=== PATIENT | female | born 1945 | race Caucasian/White ===

== ENCOUNTER → 2017-07-29 10:16 | Outpatient (CLI) | payer MEDICARE, SELFPAY ==
--- NOTE | 2017-07-29 10:19 | DI.RAD.S_ITS ---
PROCEDURE: XR KNEE LT 3V INDICATIONS: 72 year-old female with left knee pain. TECHNIQUE: 3 views of the knee were acquired. COMPARISON: [facility], , KNEE 3V LEFT, 10/02/2014, 8:20. [facility], , KNEE 3V LEFT, 12/20/2007, 13:10. FINDINGS: Bones: No fractures or dislocations. Medial knee joint degenerative narrowing is unchanged, with peripheral osteophyte formation. Small patellar osteophytes are also unchanged. No suspicious bony lesions. Soft tissues: No joint effusion. No suspicious soft tissue calcifications. IMPRESSION: No significant interval change in moderate medial left knee joint degeneration. Dictated by: Bal Azar M.D. on 07/29/2017 at 10:37 Approved by: Bal Azar M.D. on 07/29/2017 at 10:38
--- NOTE | 2017-07-29 10:19 | DI.RAD.S_ITS ---
PROCEDURE: XR KNEE RT 3V INDICATIONS: 72 year-old female with right knee pain. TECHNIQUE: 3 views of the knee were acquired. COMPARISON: None. FINDINGS: Bones: No fractures or dislocations. There is medial right knee joint degenerative narrowing, along with peripheral osteophyte formation. No suspicious bony lesions. Soft tissues: No joint effusion. No suspicious soft tissue calcifications. IMPRESSION: Mild medial right knee joint degeneration. Dictated by: Bal Azar M.D. on 07/29/2017 at 10:36 Approved by: Bal Azar M.D. on 07/29/2017 at 10:37
== END ==
PROVIDERS: PCP Family Medicine; Visit Provider Family Medicine
DX: M17.0 Bilateral primary osteoarthritis of knee (principal); M25.561 Pain in right knee; M25.562 Pain in left knee
CPT/HCPCS: 73562

== ENCOUNTER → 2017-10-21 07:21 | Outpatient (CLI) | payer MEDICARE, SELFPAY ==
[2017-10-21 08:37] LABS: Cholesterol 214 mg/dL (140-199); Glucose 93 mg/dL (80-110); HDL Cholesterol 66 mg/dL (40-60); LDL Cholesterol Calculated 130 mg/dL (<100); Triglycerides 88 mg/dL (35-150)
== END ==
PROVIDERS: PCP Family Medicine; Visit Provider Family Medicine
DX: Z13.220 Encounter for screening for lipoid disorders (principal); Z13.1 Encounter for screening for diabetes mellitus
CPT/HCPCS: 36415; 80061; 82947

== ENCOUNTER → 2017-10-23 13:20 | Outpatient (CLI) | payer MEDICARE, SELFPAY ==
--- NOTE | 2017-10-23 13:21 | DI.MG.S_ITS ---
BILATERAL DIGITAL SCREENING MAMMOGRAM 3D/2D WITH CAD: 10/23/2017 CLINICAL: Routine screening. Comparison is made to exams dated: 10/21/2016 mammogram, 11/01/2014 mammogram, and 09/21/2013 mammogram - [facility]. There are scattered fibroglandular elements in both breasts. Current study was also evaluated with a Computer Aided Detection (CAD) system. No significant masses, calcifications, or other findings are seen in either breast. There has been no significant interval change. IMPRESSION: NEGATIVE There is no mammographic evidence of malignancy. A 1 year screening mammogram is recommended. This exam was interpreted at Station ID: [id number]. NOTE: For mammograms, a report in lay terms will be sent to the patient. Approximately 15% of breast malignancies will not be visualized mammographically. In the management of a palpable breast mass, a negative mammogram must not discourage biopsy of a clinically suspicious lesion. Electronically Signed By: Evin geller/clarisa:10/23/2017 15:57:26 letter sent: Normal Exam ACR BI-RADS Category 1: Negative 3341F
== END ==
PROVIDERS: Family Provider Family Medicine; PCP Family Medicine; Visit Provider Family Medicine
DX: Z12.31 Encounter for screening mammogram for malignant neoplasm of breast (principal)
CPT/HCPCS: 77063; 77067

== ENCOUNTER → 2018-03-01 10:42 | Outpatient (CLI) | payer MEDICARE, SELFPAY ==
[2018-03-03 19:02] LABS: Fecal Immunochemical Test NOT DETECTED
== END ==
PROVIDERS: PCP Physician Assistant; Visit Provider Physician Assistant
DX: Z12.11 Encounter for screening for malignant neoplasm of colon (principal)
CPT/HCPCS: 82274

== ENCOUNTER → 2018-07-30 08:25 | Outpatient (CLI) | payer MEDICARE, SELFPAY ==
--- NOTE | 2018-07-30 08:29 | DI.RAD.S_ITS ---
PROCEDURE: FL BARIUM SWALLOW INDICATIONS: Recurrent GERD COMPARISON: None. FINDINGS: Function: There is severely delayed esophageal clearance and decreased esophageal peristalsis. Spontaneous gastroesophageal reflux to the level of the lower third of the esophagus. Morphology: Air-contrast images demonstrate diffuse mucosal irregularity presumably reflux related. There is also feline appearance. Single contrast views show no esophageal strictures, extrinsic mass effects, or diverticula. Tiny sliding hiatal hernia. IMPRESSION: Esophageal dysmotility and delayed esophageal clearance. Spontaneous esophageal reflux. Diffuse esophageal mucosal irregularity, presumably related to reflux. Minimal sliding hiatal hernia. Dictated by: Korey Ann M.D. on 07/30/2018 at 9:52 Approved by: Korey Ann M.D. on 07/30/2018 at 10:09
== END ==
PROVIDERS: PCP Physician Assistant; Visit Provider Physician Assistant
DX: K21.9 Gastro-esophageal reflux disease without esophagitis (principal); K22.4 Dyskinesia of esophagus; F45.8 Other somatoform disorders
CPT/HCPCS: 74220

== ENCOUNTER → 2018-10-14 07:14 | Outpatient (CLI) | payer MEDICARE, SELFPAY ==
[2018-10-14 08:44] LABS: Alanine Aminotransferase 11 IU/L (9-52); Albumin 4.3 g/dL (3.5-5.0); Albumin Globulin Ratio 1.5 (1.0-2.8); Alkaline Phosphatase 55 U/L (38-126); Aspartate Aminotransferase 21 IU/L (14-36); BUN Creatinine Ratio 17.5 (6-22); Bilirubin Total 0.4 mg/dL (0.2-1.3); Blood Urea Nitrogen 14 mg/dL (7-17); Carbon Dioxide 31 mmol/L (22-32); Chloride 103 mmol/L (98-107); Cholesterol 205 mg/dL (140-199); Estimated Glomerular Filt Rate > 60.0 mL/min (>60); Globulin 2.9 g/dL (1.7-4.1); Glucose 96 mg/dL (80-110); HDL Cholesterol 67 mg/dL (40-60); HEMOLYSIS < 15 (0-50); LDL Cholesterol Calculated 121 mg/dL (<100); Potassium 4.8 mmol/L (3.4-5.1); Sodium 142 mmol/L (137-145); Total Protein 7.2 g/dL (6.3-8.2); Triglycerides 86 mg/dL (35-150)
[2018-10-14 08:53] LABS: Add Manual Diff / Slide Review NO; Basophils Absolute Auto 0 /uL (0-100); Basophils Percent Auto 0.9 % (0-2); Eosinophils Absolute Auto 200 /uL (0-450); Eosinophils Percent Auto 3.3 % (2-4); Hematocrit 41.7 % (36-46); Hemoglobin 14.1 g/dL (12.0-16.0); Lymphocytes Absolute Auto 1500 /uL (1100-4500); Lymphocytes Percent Auto 28.5 % (25-40); Mean Corpuscular HGB Conc 33.9 % (30-36); Mean Corpuscular Hemoglobin 31.2 PG (26-34); Mean Corpuscular Volume 92.1 fL (80-100); Monocytes Absolute Auto 400 /uL (0-900); Monocytes Percent Auto 7.9 % (3-14); Neutrophils Absolute Auto 3100 /uL (1500-7000); Neutrophils Percent Auto 59.4 % (50-75); Platelet Count 269 X10^3/uL (150-400); Red Blood Cell Count 4.53 X10^6/uL (4.0-5.2); Red Cell Distribution Width 13.9 % (11.6-14.8); White Blood Cell Count 5.2 X10^3/uL (4.5-11.0)
== END ==
PROVIDERS: PCP Physician Assistant; Visit Provider Physician Assistant
DX: E78.5 Hyperlipidemia, unspecified (principal); K21.0 Gastro-esophageal reflux disease with esophagitis
CPT/HCPCS: 36415; 80053; 80061; 85025

== ENCOUNTER → 2018-12-15 07:32 | Outpatient (CLI) | payer MEDICARE, SELFPAY ==
--- NOTE | 2018-12-15 | DI.MG.S_ITS ---
BILATERAL DIGITAL SCREENING MAMMOGRAM 3D/2D WITH CAD: 12/15/2018 CLINICAL: Routine screening. Comparison is made to exams dated: 10/23/2017 mammogram, 10/21/2016 mammogram, and 11/01/2014 mammogram - [facility]. The tissue of both breasts is heterogeneously dense. This may lower the sensitivity of mammography. Current study was also evaluated with a Computer Aided Detection (CAD) system. There are benign post operative findings in the right breast. No significant masses, calcifications, or other findings are seen in either breast. There has been no significant interval change. IMPRESSION: There is no mammographic evidence of malignancy. A 1 year screening mammogram is recommended. This exam was interpreted at Station ID: [id number]. NOTE: For mammograms, a report in lay terms will be sent to the patient. Approximately 15% of breast malignancies will not be visualized mammographically. In the management of a palpable breast mass, a negative mammogram must not discourage biopsy of a clinically suspicious lesion. Electronically Signed By: Trudy church/clarisa:12/15/2018 08:47:16 letter sent: Normal Exam ACR BI-RADS Category 2: Benign Finding(s) 3342F
== END ==
PROVIDERS: PCP Physician Assistant; Visit Provider Physician Assistant
DX: Z12.31 Encounter for screening mammogram for malignant neoplasm of breast (principal)
CPT/HCPCS: 77063; 77067

== ENCOUNTER → 2019-03-04 10:11 | Outpatient (CLI) | payer MEDICARE, SELFPAY ==
[2019-03-07 21:02] LABS: Fecal Immunochemical Test NOT DETECTED (NOT DETECTED)
== END ==
PROVIDERS: PCP Physician Assistant; Visit Provider Physician Assistant
DX: Z12.11 Encounter for screening for malignant neoplasm of colon (principal)
CPT/HCPCS: 82274

== ENCOUNTER → 2019-05-11 11:06 | Outpatient (CLI) | payer MEDICARE, SELFPAY ==
--- NOTE | 2019-05-11 | DI.RAD.S_ITS ---
PROCEDURE: XR KNEE LT 3V INDICATIONS: LEFT KNEE PAIN TECHNIQUE: 3 views of the knee were acquired. COMPARISON: [facility], , XR KNEE LT 3V, 07/29/2017, 10:00. FINDINGS: Bones: No fractures or dislocations. No suspicious bony lesions. Inpeypoe-pa-qoocim narrowing of the medial femoral tibial joint and tricompartmental periarticular osteophyte formation. Soft tissues: Small joint effusion. No suspicious soft tissue calcifications. IMPRESSION: Moderate to severe progressive narrowing of the medial femorotibial joint. Dictated by: Hipolito Koehler [facility] Interpreted: Vitor Holcomb MD on 05/11/2019 at 13:29 Approved by: Vitor Holcomb M.D. on 05/11/2019 at 13:46
== END ==
PROVIDERS: PCP Nurse Practitioner Family; Referring Provider Nurse Practitioner Family; Visit Provider Nurse Practitioner Family
DX: M25.562 Pain in left knee (principal); M25.462 Effusion, left knee
CPT/HCPCS: 73562

== ENCOUNTER → 2019-12-20 10:38 | Outpatient (CLI) | payer MEDICARE, SELFPAY ==
--- NOTE | 2019-12-20 | DI.MG.S_ITS ---
BILATERAL DIGITAL SCREENING MAMMOGRAM 3D/2D WITH CAD: 12/20/2019 CLINICAL: Routine screening. Comparison is made to exams dated: 12/15/2018 mammogram, 10/23/2017 mammogram, and 10/21/2016 mammogram - [facility]. The tissue of both breasts is heterogeneously dense. This may lower the sensitivity of mammography. Current study was also evaluated with a Computer Aided Detection (CAD) system. There are benign post operative findings in the right breast. No significant masses, calcifications, or other findings are seen in either breast. There has been no significant interval change. IMPRESSION: BENIGN There is no mammographic evidence of malignancy. A 1 year screening mammogram is recommended. This exam was interpreted at Station ID: [id number]. NOTE: For mammograms, a report in lay terms will be sent to the patient. Approximately 15% of breast malignancies will not be visualized mammographically. In the management of a palpable breast mass, a negative mammogram must not discourage biopsy of a clinically suspicious lesion. Electronically Signed By: Garcia sandoval/clarisa:12/20/2019 13:42:55 letter sent: Normal Exam ACR BI-RADS Category 2: Benign Finding(s) 3342F
== END ==
PROVIDERS: PCP Nurse Practitioner Family; Referring Provider Nurse Practitioner Family; Visit Provider Nurse Practitioner Family
DX: Z12.31 Encounter for screening mammogram for malignant neoplasm of breast (principal)
CPT/HCPCS: 77063; 77067

== ENCOUNTER → 2020-01-25 09:20 | Outpatient (CLI) | payer MEDICARE, SELFPAY ==
[2020-01-25 10:10] LABS: Hematocrit 39.2 % (36-46); Mean Corpuscular HGB Conc 33.2 % (30-36); Mean Corpuscular Hemoglobin 30.8 PG (26-34); Mean Corpuscular Volume 92.9 fL (80-100); Platelet Count 235 X10^3/uL (150-400); Red Blood Cell Count 4.22 X10^6/uL (4.0-5.2); Red Cell Distribution Width 13.5 % (11.6-14.8)
[2020-01-25 10:59] LABS: Alanine Aminotransferase 12 IU/L (<35); Albumin Globulin Ratio 1.4 (1.0-2.8); Alkaline Phosphatase 58 U/L (38-126); Aspartate Aminotransferase 20 IU/L (14-36); BUN Creatinine Ratio 22.9 (6-22); Bilirubin Total 0.5 mg/dL (0.2-1.3); Blood Urea Nitrogen 16 mg/dL (7-17); Calcium 9.7 mg/dL (8.4-10.2); Carbon Dioxide 33 mmol/L (22-32); Chloride 104 mmol/L (98-107); Cholesterol 196 mg/dL (140-199); Estimated Glomerular Filt Rate > 60.0 mL/min (>60); Globulin 2.8 g/dL (1.7-4.1); Glucose 94 mg/dL (80-110); HDL Cholesterol 63 mg/dL (40-60); HEMOLYSIS < 15 (0-50); LDL Cholesterol Calculated 117 mg/dL (<100); Potassium 5.1 mmol/L (3.4-5.1); Sodium 138 mmol/L (137-145); Total Protein 6.8 g/dL (6.3-8.2); Triglycerides 80 mg/dL (35-150)
== END ==
PROVIDERS: PCP Nurse Practitioner Family; Referring Provider Nurse Practitioner Family; Visit Provider Nurse Practitioner Family
DX: R14.0 Abdominal distension (gaseous) (principal); E78.5 Hyperlipidemia, unspecified
CPT/HCPCS: 36415; 80053; 80061; 85027

== ENCOUNTER → 2020-06-01 06:57 | Outpatient (CLI) | payer MEDICARE, SELFPAY ==
[2020-06-01 08:08] LABS: Hematocrit 40.9 % (36-46); Hemoglobin 13.4 g/dL (12.0-16.0); Mean Corpuscular HGB Conc 32.9 % (30-36); Mean Corpuscular Hemoglobin 30.6 PG (26-34); Mean Corpuscular Volume 93.1 fL (80-100); Platelet Count 274 X10^3/uL (150-400); Red Blood Cell Count 4.39 X10^6/uL (4.0-5.2); Red Cell Distribution Width 13.8 % (11.6-14.8); White Blood Cell Count 5.1 X10^3/uL (4.5-11.0)
[2020-06-01 08:24] LABS: Alanine Aminotransferase 13 IU/L (<35); Albumin 4.4 g/dL (3.5-5.0); Albumin Globulin Ratio 1.7 (1.0-2.8); Alkaline Phosphatase 58 U/L (38-126); Aspartate Aminotransferase 21 IU/L (14-36); BUN Creatinine Ratio 19.2 (6-22); Bilirubin Total 0.4 mg/dL (0.2-1.3); Blood Urea Nitrogen 15 mg/dL (7-17); Calcium 10.5 mg/dL (8.4-10.2); Carbon Dioxide 29 mmol/L (22-32); Chloride 103 mmol/L (98-107); Estimated Glomerular Filt Rate > 60.0 mL/min (>60); Globulin 2.6 g/dL (1.7-4.1); Glucose 94 mg/dL (80-110); HEMOLYSIS < 15 (0-50); Potassium 4.5 mmol/L (3.4-5.1); Sodium 139 mmol/L (137-145)
[2020-06-01 08:49] LABS: TSH w/ Reflex to FT4 2.11 uIU/mL (0.47-4.68)
[2020-06-01 09:09] LABS: Vitamin B12 Reflex MMA if <400 776 pg/mL (239-931)
== END ==
PROVIDERS: PCP Nurse Practitioner Family; Referring Provider Nurse Practitioner Family; Visit Provider Nurse Practitioner Family
DX: Z00.00 Encounter for general adult medical examination without abnormal findings (principal); R53.83 Other fatigue
CPT/HCPCS: 36415; 80053; 82607; 84443; 85027

== ENCOUNTER → 2020-06-21 13:44 | Outpatient (CLI) | payer MEDICARE, SELFPAY ==
[2020-06-22 12:36] LABS: Calcium 9.4 mg/dL (8.7-10.3); Parathyroid Hormone, Intact 68 pg/mL (15-65)
== END ==
PROVIDERS: PCP Nurse Practitioner Family; Referring Provider Nurse Practitioner Family; Visit Provider Nurse Practitioner Family
DX: E83.52 Hypercalcemia (principal)
CPT/HCPCS: 36415; 82310; 83970

== ENCOUNTER → 2020-11-07 14:00 | Outpatient (CLI) | payer MEDICARE, SELFPAY ==
[2020-11-07 15:41] LABS: Vitamin D 25 Hydroxy (D3) 50.3 ng/mL (30.0-100.0)
[2020-11-08 16:17] LABS: Calcium 9.8 mg/dL (8.7-10.3); Parathyroid Hormone, Intact 55 pg/mL (15-65)
== END ==
PROVIDERS: PCP Nurse Practitioner Family; Referring Provider Nurse Practitioner Family; Visit Provider Nurse Practitioner Family
DX: E55.9 Vitamin D deficiency, unspecified (principal); E34.9 Endocrine disorder, unspecified
CPT/HCPCS: 36415; 82306; 82310; 83970

== ENCOUNTER → 2020-12-10 08:52 | Outpatient (CLI) | payer MEDICARE, SELFPAY ==
--- NOTE | 2020-12-10 | DI.MG.S_ITS ---
BILATERAL DIGITAL SCREENING MAMMOGRAM 3D/2D WITH CAD: 12/10/2020 CLINICAL: Routine screening. Comparison is made to exams dated: 12/20/2019 mammogram, 12/15/2018 mammogram, 10/21/2016 mammogram, 10/23/2017 mammogram, and 11/01/2014 mammogram - [facility]. The tissue of both breasts is heterogeneously dense. This may lower the sensitivity of mammography. Current study was also evaluated with a Computer Aided Detection (CAD) system. No significant masses, calcifications, or other findings are seen in either breast. There has been no significant interval change. IMPRESSION: NEGATIVE There is no mammographic evidence of malignancy. A 1 year screening mammogram is recommended. This exam was interpreted at Station ID: [id number]. NOTE: For mammograms, a report in lay terms will be sent to the patient. Approximately 15% of breast malignancies will not be visualized mammographically. In the management of a palpable breast mass, a negative mammogram must not discourage biopsy of a clinically suspicious lesion. Electronically Signed By: Neeraj salvador/clarisa:12/10/2020 09:18:14 letter sent: Normal Exam ACR BI-RADS Category 1: Negative 3341F
== END ==
PROVIDERS: PCP Nurse Practitioner Family; Referring Provider Nurse Practitioner Family; Visit Provider Nurse Practitioner Family
DX: Z12.31 Encounter for screening mammogram for malignant neoplasm of breast (principal)
CPT/HCPCS: 77063; 77067

== ENCOUNTER → 2020-12-21 10:51 | Outpatient (CLI) | payer MEDICARE, SELFPAY ==
--- NOTE | 2020-12-21 10:53 | DI.US.S_ITS ---
PROCEDURE: US EXTREMITY NONVASC LOWER LT INDICATIONS: PAIN IN SOFT TISSUE POSTERIOR KNEE TECHNIQUE: Real-time scanning was performed of the left popliteal fossa. , with image documentation. COMPARISON: None. FINDINGS: Left popliteal fossa Blanca's cyst measuring 5.6 x 4.3 x 2.3 cm. Normal appearance of the adjacent popliteal vein. IMPRESSION: A Blanca's cyst is present in the posterior knee. Dictated by: Hipolito Koehler [facility] Interpreted: Berny Rodgers MD on 12/21/2020 at 12:46 Transcribed by: TERRENCE on 12/21/2020 at 12:48 Approved by: Berny Rodgers M.D. on 12/21/2020 at 13:55
== END ==
PROVIDERS: PCP Nurse Practitioner Family; Referring Provider Nurse Practitioner Family; Visit Provider Nurse Practitioner Family
DX: M25.562 Pain in left knee (principal); M71.22 Synovial cyst of popliteal space [Baker], left knee
CPT/HCPCS: 76882

== ENCOUNTER → 2021-07-03 10:35 | Outpatient (CLI) | payer MEDICARE, SELFPAY ==
--- NOTE | 2021-07-03 10:40 | DI.RAD.S_ITS ---
PROCEDURE: XR CHEST 2V INDICATIONS: cough TECHNIQUE: 2 views of the chest were acquired. COMPARISON: [facility], , CHEST 2 VIEW, 02/08/2015, 14:21. FINDINGS: Surgical changes and devices: None. Lungs and pleura: Calcified granuloma, left upper lobe, calcified AP window lymph node. These findings are consistent with chronic granulomatous disease. There is a question of a potential pulmonary nodule projecting either to the right middle lobe or lingula of left lung seen only on the lateral view. Lungs are clear. No pleural effusions or pneumothorax. Mediastinum: Mediastinal contours are normal. Heart size is normal. Bones and chest wall: No suspicious bony abnormalities. Soft tissues appear unremarkable. IMPRESSION: 1. Question pulmonary nodule seen only on the lateral view. 2. Chronic granulomatous disease. 3. No evidence acute pulmonary process. Comment: Recommend CT chest to rule out a pulmonary nodule which is only suggested on the lateral view. Comment: An Urgent Findings note was created in PACS to ensure notification of the referring clinician. Dictated by: Adair Villalobos M.D. on 07/03/2021 at 12:21 Approved by: Adair Villalobos M.D. on 07/03/2021 at 12:26
== END ==
PROVIDERS: PCP Family Medicine; Referring Provider Surgery; Visit Provider Surgery
DX: R05.9 Cough, unspecified (principal); J98.4 Other disorders of lung; K21.9 Gastro-esophageal reflux disease without esophagitis
CPT/HCPCS: 71046; 99213

== ENCOUNTER → 2021-07-04 06:52 | Outpatient (CLI) | payer MEDICARE, SELFPAY ==
[2021-07-04 08:52] LABS: Add Manual Diff / Slide Review NO; Basophils Absolute Auto 100 /uL (0-100); Basophils Percent Auto 1.4 % (0-2); Eosinophils Absolute Auto 200 /uL (0-450); Eosinophils Percent Auto 4.9 % (2-4); Lymphocytes Absolute Auto 1100 /uL (1100-4500); Mean Corpuscular HGB Conc 33.4 % (30-36); Mean Corpuscular Hemoglobin 30.5 PG (26-34); Mean Corpuscular Volume 91.3 fL (80-100); Monocytes Absolute Auto 400 /uL (0-900); Neutrophils Absolute Auto 2800 /uL (1500-7000); Neutrophils Percent Auto 60.7 % (50-75); Platelet Count 251 X10^3/uL (150-400); Red Blood Cell Count 4.28 X10^6/uL (4.0-5.2); Red Cell Distribution Width 13.9 % (11.6-14.8); White Blood Cell Count 4.6 X10^3/uL (4.5-11.0)
[2021-07-04 09:17] LABS: Alanine Aminotransferase 19 IU/L (<35); Albumin 4.4 g/dL (3.5-5.0); Albumin Globulin Ratio 1.7 (1.0-2.8); Alkaline Phosphatase 64 U/L (38-126); Aspartate Aminotransferase 26 IU/L (14-36); BUN Creatinine Ratio 22.5 (6-22); Bilirubin Total 0.4 mg/dL (0.2-1.3); Blood Urea Nitrogen 18 mg/dL (7-17); Calcium 9.6 mg/dL (8.4-10.2); Carbon Dioxide 31 mmol/L (22-32); Chloride 103 mmol/L (98-107); Cholesterol 223 mg/dL (140-199); Estimated Glomerular Filt Rate > 60 mL/min (>60); Globulin 2.6 g/dL (1.7-4.1); Glucose 87 mg/dL (80-110); HDL Cholesterol 73 mg/dL (40-60); HEMOLYSIS < 15 (0-50); LDL Cholesterol Calculated 134 mg/dL (<100); Potassium 4.6 mmol/L (3.4-5.1); Sodium 139 mmol/L (137-145); Triglycerides 79 mg/dL (35-150)
[2021-07-04 09:33] LABS: Vitamin D 25 Hydroxy (D3) 69.5 ng/mL (30.0-100.0)
[2021-07-04 09:48] LABS: TSH w/ Reflex to FT4 2.19 uIU/mL (0.47-4.68)
== END ==
PROVIDERS: PCP Family Medicine; Referring Provider Family Medicine; Visit Provider Family Medicine
DX: E55.9 Vitamin D deficiency, unspecified (principal); K21.00 Gastro-esophageal reflux disease with esophagitis, without bleeding; R42 Dizziness and giddiness; R53.83 Other fatigue
CPT/HCPCS: 36415; 80053; 80061; 82306; 84443; 85025

== ENCOUNTER → 2021-07-10 12:49 | Outpatient (CLI) | payer MEDICARE, SELFPAY ==
--- NOTE | 2021-07-10 12:51 | DI.CT.S_ITS ---
PROCEDURE: CT CHEST W CON INDICATIONS: Question of nodule on CXR TECHNIQUE: After the administration of intravenous contrast, 5 mm thick sections acquired from the pulmonary apices to the posterior costophrenic angles. 1 mm axial lung, 5 mm thick coronal and sagittal reformats and 7 mm axial MIP were acquired. For radiation dose reduction, the following was used: automated exposure control, adjustment of mA and/or kV according to patient size. COMPARISON: [facility], CR, XR CHEST 2V, 07/03/2021, 10:58. FINDINGS: Image quality: Excellent. Lungs and pleura: 1 cm calcification in the left upper lobe laterally. 5 mm pleural nodule in the right middle lobe series 4, image 92. No acute air space opacities. No pleural effusions or pneumothorax. Central and peripheral airways are patent and normal in caliber. Mediastinum: Heart size is normal. No pericardial effusion. No mediastinal adenopathy by size criteria. Thoracic aorta and central pulmonary arteries are normal in size. Esophagus is normal in caliber. The thyroid gland demonstrates multiple large heterogenous nodules consistent with thyroid goiter. Bones and chest wall: No suspicious bony lesions. No vertebral body compression fractures. No axillary or supraclavicular adenopathy by size criteria. Abdomen: Limited visualization of the upper abdomen shows no acute abnormality. The liver has several hypodensities consistent with hepatic cysts. IMPRESSION: 1. Benign calcified nodule in the left upper lobe. 2. Incidental pleural nodule in the right middle lobe measuring 5 mm approved. For >4-6 mm nodules: In low risk patients, follow-up CT at 12 months; if unchanged, no further follow-up needed. In high risk patients, initial follow-up CT at 6-12 months, then 18-24 months if no change. 3. Thyroid goiter. Recommend thyroid ultrasound. Dictated by: Humble Velez M.D. on 07/10/2021 at 13:40 Approved by: Humble Velez M.D. on 07/10/2021 at 13:46
== END ==
PROVIDERS: PCP Family Medicine; Referring Provider Surgery; Visit Provider Surgery
DX: E04.9 Nontoxic goiter, unspecified (principal); R05.9 Cough, unspecified; R91.8 Other nonspecific abnormal finding of lung field
CPT/HCPCS: 71260; Q9967

== ENCOUNTER → 2021-08-16 11:54 | Outpatient (CLI) | payer MEDICARE, SELFPAY ==
--- NOTE | 2021-08-16 11:56 | DI.US.S_ITS ---
PROCEDURE: US THYROID INDICATIONS: GOITER ON CT TECHNIQUE: Real-time scanning was performed of the thyroid gland, with image documentation. COMPARISON: [facility], CT, CT CHEST W CON, 07/10/2021, 13:04. FINDINGS: Right: Thyroid lobe measures 6.3 x 4.1 x 3 point cm, and is homogeneous in echotexture. Left: Thyroid lobe measures 6.2 x 2.9 x 4.2 cm, and is homogenous in echotexture. Isthmus: 15.1 mm thick. Numerous bilateral thyroid nodules. Largest thyroid nodules characterized lobe Nodule number: 1 Location: Left inferior Size: 2.2 x 1.3 x 2.1 cm. Composition: Solid Echogenicity: Isoechoic Shape: Wider than tall Margins: Smooth Echogenic foci: None Total points: 3 ACR TI-RADS category: Mildly suspicious Nodule number: 2 Location: Left inferior Size: 3.4 x 2.2 x 2.2 cm. Composition: Solid Echogenicity: Isoechoic Shape: wider than tall. Margins: Smooth Echogenic foci: None Total points: 3 ACR TI-RADS category: Mildly suspicious Nodule number: 3 Location: Right mid Size: 2.3 x 1.7 x 1.5 cm. Composition: Solid Echogenicity: Isoechoic Shape: Taller than wide Margins: Smooth Echogenic foci: None Total points: 6 ACR TI-RADS category: Moderately suspicious Nodule number: 4 Location: Right inferior Size: 1.6 x 1.8 x 1.8 cm. Composition: Solid Echogenicity: Hypoechoic Shape: wider than tall. Margins: Smooth Echogenic foci: Peripheral calcification Total points: 6 ACR TI-RADS category: Moderately suspicious IMPRESSION: Multiple thyroid nodules. Largest thyroid nodules or characterized. Based on size, imaging characteristics and criteria outlined below ultrasound-guided fine-needle aspiration of nodules 2, 3 and 4. Follow-up surveillance of nodule 1 at 1, 3 and 5 year intervals. ACR TI-RADS definitions and recommendations: TI-RADS 1 (benign): 0 points. FNA not needed. TI-RADS 2 (not suspicious): 2 points. FNA not needed. TI-RADS 3 (mildly suspicious): 3 points. * FNA if 2.5 cm or larger, follow up if 1.5 cm or larger (at 1, 3, and 5 years). TI-RADS 4 (moderately suspicious): 4-6 points. * FNA if 1.5 cm or larger, follow up if 1 cm or larger (at 1, 2, 3, and 5 years). TI-RADS 5 (highly suspicious): 7 points or more. * FNA if 1 cm or larger, follow up if 0.5 cm or larger (every year for 5 years). Dictated by: Antoinette Whittaker MD, PhD on 08/16/2021 at 14:10 Approved by: Antoinette Whittaker MD, PhD on 08/16/2021 at 14:20
== END ==
PROVIDERS: PCP Family Medicine; Referring Provider Surgery; Visit Provider Surgery
DX: E04.2 Nontoxic multinodular goiter
CPT/HCPCS: 76536

== ENCOUNTER → 2021-08-21 08:57 | Outpatient (CLI) | payer MEDICARE, SELFPAY ==
[2021-08-21 10:43] LABS: COVID19 -Nasal RAPID Negative (Negative)
== END ==
PROVIDERS: PCP Family Medicine; Visit Provider Surgery
DX: Z20.822 Contact with and (suspected) exposure to COVID-19 (principal); Z01.812 Encounter for preprocedural laboratory examination
CPT/HCPCS: 87635; C9803

== ENCOUNTER 2021-08-22 09:34 | Day surgery (SDC) | payer MEDICARE, SELFPAY ==
--- NOTE | 2021-08-22 | PATH_ITS ---
[facility] Accession Number: [id number] . 01 Material submitted: . PART A: stomach - ANTRUM BIOPSIES PART B: esophagus, E-G Junction - GE JUNCTION BIOPSIES PART C: esophagus - DISTAL ESOPHAGUS BIOPSIES PART D: esophagus - MID ESOPHAGEAL BIOPSIES PART E: esophagus - UPPER ESOPHAGEAL BIOPSIES . 01 Clinical history: . [facility] [place] SCREENING FOR MALIGNANT NEOPLASM PERSONAL HISTORY OF COLONIC POLYPS GASTRO-ESOPHAGEAL REFLUX DISEASE WITH ESOPHAGITIS . 01 Diagnosis: A. Stomach, Antrum, Biopsies: Antral mucosa with mild chronic gastritis. No evidence of Helicobacter on H/E stain. Negative for intestinal metaplasia. Negative for dysplasia and malignancy. . B. Gastroesophageal Junction, Biopsies: Squamocolumnar junctional mucosa with no diagnostic abnormality. Negative for intestinal metaplasia. Negative for dysplasia and malignancy. . C-E: Distal Esophagus, Mid Esophagus, Upper Esophagus, Biopsies: Squamous epithelium with no diagnostic abnormality. Intraepithelial eosinophils are not increased. Negative for dysplasia and malignancy. [facility] 08/28/2021 1341 Local . 01 Electronically signed: . Jill Oakley MD, Pathologist NPI- [id number] . 01 Gross description: . Part A: ANTRUM BIOPSIES: Received in formalin is 1 fragment(s) of rosenthal, soft tissue measuring 0.3 x 0.2 x 0.1 cm to 0.1 x 0.1 x 0.1 cm submitted entirely in 1 cassette(s) Part B: GE JUNCTION BIOPSIES: Received in formalin are 4 fragment(s) of rosenthal, soft tissue measuring 0.3 x 0.2 x 0.1 cm to 0.2 x 0.1 x 0.1 cm submitted entirely in 1 cassette(s) Part C: DISTAL ESOPHAGUS BIOPSIES: Received in formalin are 2 fragment(s) of rosenthal, soft tissue measuring 0.3 x 0.2 x 0.1 cm to 0.2 x 0.1 x 0.1 cm submitted entirely in 1 cassette(s) Part D: MID ESOPHAGEAL BIOPSIES: Received in formalin is 1 fragment(s) of rosenthal, soft tissue measuring 0.2 x 0.1 x 0.1 cm submitted entirely in 1 cassette(s) Part E: UPPER ESOPHAGEAL BIOPSIES: Received in formalin are minute fragment(s) of rosenthal, soft tissue measuring 0.1 x 0.1 x 0.1 cm in aggregate submitted entirely in 1 cassette(s) /CPE 08/23/2021 0615 Local . 01 Pathologist provided ICD-10: K21.00 . 01 CPT . 996546, 600082, 276896, 818379, 312825 Specimen Comment: A courtesy copy of this report has been sent to [phone] Performed at: 01 [facility] [address] [place] [address], [place], [place] [id number] MD Marcin Ridley MD Phone: [phone]
[2021-08-22 09:52] VITALS: BP 129/65; PULSE 67; RESP 15; TEMP 36.3; O2SAT 97; BMI 25.8
--- NOTE | 2021-08-22 11:37 | P.HP_ITS ---
History of Present Illness History of Present Illness Date Patient Seen: 08/22/21 Time Patient Seen: 11:37 Chief complaint: [facility] Narrative: An is here for her EGD and colonoscopy. She did have her CT scan which showed a few nodules in the lung that require follow-up as well as a thyroid goiter which prompted an ultrasound which found multiple nodules some of which should be biopsied. Patient History Medical History Abdominal bloating Ankle pain Back pain Cataract (2014) Chicken pox (~1950) Elevated parathyroid hormone Fatigue (02/2019) Foot pain Hoarseness or changing voice Intertrigo labialis Left knee pain Mild to moderate hearing loss Mumps (~1950) Skin cancer (2012) Vertigo (~1989) Vitamin D deficiency Surgical History Anesthesia History of bladder suspension procedure (2012) History of cataract removal with insertion of prosthetic lens (2014) Status post surgical removal of malignant neoplasm of skin (2014) Family & Social History Family History Sister Age: 81 Overweight Heart disease Brother Heart disease Father Heart disease Mother No problems noted. Sister Overweight Heart disease Social History: household members spouse other walking,weight lifting,treadmill,camping,boating Tobacco & Substance use: Smoking Status Never smoker alcohol intake current Substance Use Type does not use Meds Home Medications and Allergies Home Medications Medication Instructions Recorded Confirmed Type cholecalciferol (vitamin D3) 50 2,000 iu PO Q DAY ##0 10/29/11 07/03/21 History mcg (2,000 unit) capsule (Vitamin D3) multivitamin See Rx Instructions PO DAILY 02/10/18 07/03/21 History vit 2 tab PO BID 02/10/18 07/03/21 History [id number] 500 mg-50 mg-25 mg-40 mg tablet (Bioflex) ketoconazole 2 % topical cream 1 applic topical BID #60 grams 05/31/20 07/03/21 Rx omega-3 fatty acids 1,000 mg 1,000 mg PO DAILY 05/31/20 07/03/21 History capsule (Fish Oil Concentrate) psyllium husk 0.4 gram capsule 0.4 g PO DAILY 05/31/20 07/03/21 History (Daily Fiber) meloxicam 15 mg tablet 15 mg PO DAILY #90 tabs 05/15/21 07/03/21 Rx meclizine 25 mg tablet 25 mg PO BID-TID PRN vertigo #30 05/24/21 07/03/21 Rx tabs sodium sul 1.479 gram-potas ch See Rx Instructions PO PER PKG DIR 07/04/21 Rx 0.188 gram-magnes sul 0.225 gram #24 tabs tablet (Sutab) omeprazole 20 mg capsule,delayed 20 mg PO DAILY #90 caps 08/15/21 Rx release oxybutynin chloride 5 mg tablet 5 mg PO BID #30 tabs 08/21/21 Rx Allergies Allergy/AdvReac Type Severity Reaction Status Date / Time No Known Drug Allergies Allergy Verified 08/22/21 09:46 Exam Vital Signs (past 8 hours): - 08/22/21 09:52 Temperature 97.4 F L Pulse Rate 67 Respiratory Rate 15 Blood Pressure 129/65 Pulse Oximetry 97 Oxygen Delivery Method Room Air Oxygen Delivery Method Room Air Const General: anxious Resp Effort & Inspection: normal respiratory effort Assessment & Plan Assessment and plan (1) Screening for colon cancer: Status: Acute (2) Abdominal bloating: Status: Acute Plan We will proceed with upper and lower endoscopy today. We reviewed the risks and benefits and she chooses to proceed. Once she has recovered from the procedure today we will want to refer her to an casework manager for her multiple thyroid nodules. We will also arrange for a follow-up CT scan of the chest a year from now. Time Spent With Patient Critical Care time: I spent a total of [] minutes of critical care time on this patient's care today; this time is exclusive of procedural time.
[2021-08-22] MEDS: LIDOCAINE 4% SOLN 50 ML 20 ML TOP (11:45)
--- NOTE | 2021-08-22 12:13 | PC.NURSE ---
Pt sedated per surgeon. Jaw thrust and O2 by nasal cannula increased. Pt responded well to both, O2 sats maintained with these interventions. Surgeon aware. See sedation pathway on worklist and total amount in APR.
[2021-08-22] MEDS: fentaNYL 250 MCG/5 ML INJ 150 MCG IV (12:18)
[2021-08-22] MEDS: MIDAZOLAM 5 MG/5 ML VIAL 8 MG IV (12:19)
--- NOTE | 2021-08-22 12:22 | PM.OP.EC ---
Operative Date/Time/Diagnoses Date of procedure: 08/22/21 Time of procedure: 12:22 Pre-op diagnosis: Reflux and history of polyps Procedure & Clinicians Study performed: EGD and colonoscopy Same procedure as scheduled: Yes Surgeon: Archie Whiteside Procedure Notes Procedure in detail: Surgeon: Archie Whiteside MD Procedure in detail: A timeout was performed. A bite blocked was placed and monitors were attached to the patient. The patient was positioned in a left lateral decubitus position. Sedation was administered with Versed and fentanyl. Once the patient was sedated the endoscope was inserted through the bite block and passed through the esophagus and stomach and into the duodenum. The duodenum appeared normal. The scope was withdrawn into the stomach and the antrum was noted to be mildly inflamed and random biopsies were taken from the antrum. The rest of the stomach was grossly normal. The endoscope was retroflexed and no hiatal hernia was seen. The endoscope was straightned and withdrawn into the esophagus. The entire esophagus was inflamed and the mucosa was irregular. Biopsies were taken from the GE junction circumferentially, the distal esophagus, the midesophagus and the upper esophagus. No masses were identified. Findings: Mild antritis and esophagitis Next we repositioned the patient for a colonoscopy. A digital rectal exam was performed and was normal. The colonoscope was inserted and advanced to the cecum. The appendiceal orifice was identified and photographed. The scope was slowly withdrawn over greater than 6 minutes. No polyps were noted. The scope was retroflexed in the rectum and no abnormalities were noted. Findings: Normal colon EBL: 5 mL Scope withdrawal time: 7 Sedation minutes: 34 Post-procedure Disposition: PACU
[2021-08-22 12:25] VITALS: BP 120/73; PULSE 80; RESP 14; TEMP 36.5; O2SAT 91
--- NOTE | 2021-08-22 12:25 | PC.NURSE ---
Discontinued jaw thrust, pt maintained airway on her own. O2 sats WNL on nasal cannula
[2021-08-22 12:30] VITALS: BP 125/64; PULSE 73; RESP 14; TEMP 36.4; O2SAT 93
[2021-08-22 12:35] VITALS: BP 129/68; PULSE 78; RESP 16; TEMP 36.3; O2SAT 93
[2021-08-22 12:40] VITALS: BP 115/63; PULSE 75; RESP 14; TEMP 36.3; O2SAT 93
[2021-08-22 12:56] VITALS: BP 139/76; PULSE 76; RESP 18; TEMP 36.3; O2SAT 93
== END 2021-08-22 13:04 | disposition home or self-care (01) ==
PROVIDERS: PCP Family Medicine; Referring Provider Surgery; Visit Provider Surgery
PROC: 0DJD8ZZ Inspection of Lower Intestinal Tract, Via Natural or Artificial Opening Endoscopic (ICD-10-PCS; CPT 45378; principal; 2021-08-22 10:45)
PROC: 0DJ08ZZ Inspection of Upper Intestinal Tract, Via Natural or Artificial Opening Endoscopic (ICD-10-PCS; CPT 43235; 2021-08-22 10:45)
DX: Z12.11 Encounter for screening for malignant neoplasm of colon (principal); Z86.010 Personal history of colon polyps; K21.00 Gastro-esophageal reflux disease with esophagitis, without bleeding; K29.50 Unspecified chronic gastritis without bleeding
CPT/HCPCS: 43239; G0105; 99152; 99153; J2250; J3010

== ENCOUNTER → 2021-10-30 10:24 | Outpatient (CLI) | payer MEDICARE, SELFPAY ==
--- NOTE | 2021-10-30 10:38 | DI.US.S_ITS ---
PROCEDURE: US PERIPH VENOUS LOW EXTREM LT INDICATIONS: SWELLING TECHNIQUE: Real-time imaging, as well as color and pulse Doppler interrogation, were performed of the lower extremity deep veins from the inguinal ligament to the popliteal fossa. COMPARISON: None. FINDINGS: The common femoral, femoral and popliteal veins are normally compressible, and free of intraluminal thrombus. Color and pulse Doppler demonstrate normal phasic intraluminal flow. There is normal augmentation response to distal compression maneuver. Complex fluid collection in the mid calf measuring 10 x 5.3 x 2.4 cm. IMPRESSION: No deep venous thrombosis. Complex collection mid calf possibly representing hematoma. Dictated by: Milady Acosta M.D. on 10/30/2021 at 12:15 Approved by: Milady Acosta M.D. on 10/30/2021 at 12:17
== END ==
PROVIDERS: PCP Physician Assistant; Referring Provider Registered Nurse; Visit Provider Registered Nurse
DX: M79.89 Other specified soft tissue disorders (principal)
CPT/HCPCS: 93971

== ENCOUNTER → 2021-10-30 10:29 | Outpatient (CLI) | payer MEDICARE, SELFPAY | PROVIDERS: PCP Family Medicine; Referring Provider Registered Nurse; Visit Provider Registered Nurse | DX: M79.662 Pain in left lower leg (principal); M79.89 Other specified soft tissue disorders ==

== ENCOUNTER → 2021-11-25 10:14 | Outpatient (CLI) | payer MEDICARE, SELFPAY ==
[2021-11-25 19:53] LABS: Free T4, Direct Thyroxine 1.24 ng/dL (0.78-2.19)
[2021-11-25 20:07] LABS: Thyroid Stimulating Hormone 1.39 uIU/mL (0.47-4.68)
== END ==
PROVIDERS: PCP Physician Assistant; Referring Provider Internal Medicine Endocrinology, Diabetes & Metabolism; Visit Provider Internal Medicine Endocrinology, Diabetes & Metabolism
DX: E04.2 Nontoxic multinodular goiter (principal)
CPT/HCPCS: 36415; 84439; 84443

== ENCOUNTER → 2021-12-18 09:41 | Outpatient (CLI) | payer MEDICARE, SELFPAY ==
--- NOTE | 2021-12-18 09:44 | DI.MG.S_ITS ---
BILATERAL DIGITAL SCREENING MAMMOGRAM 3D/2D WITH CAD: 12/18/2021 CLINICAL: Routine screening. Comparison is made to exams dated: 12/10/2020 mammogram, 12/20/2019 mammogram, and 12/15/2018 mammogram - [facility]. Both breasts are heterogeneously dense, which may obscure small masses (category c / 51-75% glandular tissue). Current study was also evaluated with a Computer Aided Detection (CAD) system. No significant masses, calcifications, or other findings are seen in either breast. There has been no significant interval change. IMPRESSION: NEGATIVE There is no mammographic evidence of malignancy. A 1 year screening mammogram is recommended. Based on the Tyrer Cuzick model (a risk assessment model) the patient's lifetime risk is 5.4% and her 10 year risk is 0.0%. According to the ACR, ACS, and NCCN guidelines, an annual breast MRI exam along with mammogram is recommended if the patient's lifetime risk is 20% or greater. This exam was interpreted at Station ID: [id number]. NOTE: For mammograms, a report in lay terms will be sent to the patient. Approximately 15% of breast malignancies will not be visualized mammographically. In the management of a palpable breast mass, a negative mammogram must not discourage biopsy of a clinically suspicious lesion. Electronically Signed By: Trudy church/clarisa:12/18/2021 13:08:08 letter sent: Normal Exam ACR BI-RADS Category 1: Negative [id number]
== END ==
PROVIDERS: PCP Physician Assistant; Referring Provider Physician Assistant; Visit Provider Physician Assistant
DX: Z12.31 Encounter for screening mammogram for malignant neoplasm of breast (principal)
CPT/HCPCS: 77063; 77067

== ENCOUNTER → 2022-07-24 11:12 | Outpatient (CLI) | payer MEDICARE, SELFPAY ==
--- NOTE | 2022-07-24 11:13 | DI.CT.S_ITS ---
PROCEDURE: CT CHEST WO CON INDICATIONS: lung nodule TECHNIQUE: Noncontrast 5 mm thick sections acquired from the pulmonary apices to the posterior costophrenic angles. 1 mm lung window, 5 mm thick coronal and sagittal and 7 mm axial MIP reformats were then acquired. For radiation dose reduction, the following was used: automated exposure control, adjustment of mA and/or kV according to patient size. COMPARISON: [facility], US, US FINE NEEDLE ASPIRATION THYROID, 12/25/2021, 13:48. US, US THYROID, 08/16/2021, 12:08. [facility], CT, CT CHEST W CON, 07/10/2021, 13:04. FINDINGS: Image quality: Excellent. Lungs and pleura: There is a 5 mm nodule in the right middle lobe (series 3, image 214), unchanged. A 1 cm calcified granuloma is seen in the left upper lobe. No acute air space opacities. No pleural effusions or pneumothorax. Central and peripheral airways are patent and normal in caliber. Mediastinum: Heart size is normal. No pericardial effusion. Calcified lymph nodes in left hilum and AP window are compatible with remote granulomatous infections.. Thoracic aorta and central pulmonary arteries are normal in size. Esophagus is normal in caliber. No hiatal hernia. Bones and chest wall: No suspicious bony lesions. No vertebral body compression fractures. No axillary or supraclavicular adenopathy by size criteria. Thyroid gland is enlarged. There is a 1 cm rim calcified nodule in the posterior right thyroid lobe. Abdomen: Visualized upper abdominal solid organs and bowel loops appear normal in the absence of contrast. IMPRESSION: 1. Stable 5 mm right middle lobe nodule. Please see enclosed follow-up recommendation. 2. Remote granulomatous disease in left upper lobe, left hilum and mediastinum. 3. Enlarged thyroid gland. There is a rim calcified nodule in the right thyroid lobe. Fleischner Society criteria for SOLID lung nodule followup. Nodule size (mm)Low-risk patientHigh-risk patient?4No follow-up neededFollow-up at 12 mo; if no change, no further follow-up>[id number] CT at 12 mo; if no change, no further follow-up needed.Initial follow-up CT at 6-12 mo, then 18-24 mo if no change. >6-8Initial follow-up CT at 6-12 mo, then 18-24 mo if no change. Initial follow-up CT at 3-6 mo, then 9-12 mo and 24 mo if no change. >8Follow-up CT at 3, 9, 24 mo. Or PET and/or biopsy.Same as for low-risk pts. Dictated by: Berny Rodgers M.D. on 07/24/2022 at 14:41 Approved by: Berny Rodgers M.D. on 07/24/2022 at 14:52
== END ==
PROVIDERS: PCP Physician Assistant; Referring Provider Surgery; Visit Provider Surgery
DX: R91.1 Solitary pulmonary nodule (principal); J98.4 Other disorders of lung; R59.0 Localized enlarged lymph nodes; E04.1 Nontoxic single thyroid nodule
CPT/HCPCS: 71250

== ENCOUNTER → 2023-03-25 11:06 | Outpatient (CLI) | payer MEDICARE, SELFPAY ==
--- NOTE | 2023-03-25 | DI.RAD.S_ITS ---
Bone Density Report Name: SUE JONES Age: 77 Sex: Female Ethnicity: White Date of : 1945 Indication: postmenopausal; screening for osteoporosis; Referring Provider: BRIDGER HERNANDEZ Study: Bone densitometry was performed. Exam Date: March 25, 2023 Accession number: [id number] Bone Density: Region BMD T-score Z-score Classification AP Spine(L1-L4) 0.886 -1.5 1.1 Osteopenia Femoral Neck (Left) 0.566 -2.6 -0.3 Osteoporosis Total Hip (Left) 0.697 -2.0 -0.1 Osteopenia Femoral Neck (Right) 0.584 -2.4 -0.2 Osteopenia Total Hip (Right) 0.680 -2.1 -0.2 Osteopenia Total Hip Mean 0.689 -2.1 -0.2 Osteopenia World Health Organization criteria for BMD impression classify patients as: Normal (T-score at or above -1.0), Osteopenia (T-score between -1.0 and -2.5), or Osteoporosis (T-score at or below -2.5). 10-year Fracture Risk: FRAX not reported because: Some T-score for Spine Total or Hip Total or Femoral Neck at or below -2.5 Treated for osteoporosis Impression: The patient has osteoporosis, based on the Left Femoral Neck T-score. Discussion: It is important to ask patients whether they are taking their medications and to encourage continued and appropriate compliance with their osteoporosis therapies to reduce fracture risk. It is also important to review their risk factors and encourage appropriate calcium and vitamin D intakes, exercise, fall prevention and other lifestyle measures. Follow-Up: Consider a repeat BMD and Vertebral Fracture Assessment (VFA) exam in 2 years or sooner if medically necessary, to reassess this patient's status. Reported by: [facility] MATTHEW MAYA M.D. on 03/25/2023 11:35:00 AM.
== END ==
LOC: RAD 11:08
PROVIDERS: PCP Internal Medicine; Referring Provider Internal Medicine; Visit Provider Internal Medicine
DX: Z78.0 Asymptomatic menopausal state (principal); M81.0 Age-related osteoporosis without current pathological fracture
CPT/HCPCS: 77080

== ENCOUNTER → 2023-06-22 10:53 | Outpatient (CLI) | payer MEDICARE, SELFPAY ==
--- NOTE | 2023-06-22 10:55 | DI.RAD.S_ITS ---
PROCEDURE: XR CHEST 2V INDICATIONS: CHRONIC COUGH TECHNIQUE: 2 views of the chest were acquired. COMPARISON: [facility], DEJUAN, XR CHEST 2V, 07/03/2021, 10:58. [facility], , CHEST 2 VIEW, 02/08/2015, 14:21. FINDINGS: Surgical changes and devices: None. Lungs and pleura: Lungs are clear. No pleural effusions or pneumothorax. Calcified granuloma of the left upper lung zone. Mediastinum: Mediastinal contours are normal. Heart size is normal. Bones and chest wall: No suspicious bony abnormalities. Soft tissues appear unremarkable. IMPRESSION: No acute cardiopulmonary abnormality is seen. Dictated by: Mandeep Ortega M.D. on 06/22/2023 at 15:04 Approved by: Mandeep Ortega M.D. on 06/22/2023 at 15:04
== END ==
PROVIDERS: PCP Internal Medicine; Referring Provider Internal Medicine; Visit Provider Internal Medicine
DX: R05.3 Chronic cough (principal)
CPT/HCPCS: 71046

== ENCOUNTER → 2023-08-04 11:15 | Outpatient (CLI) | payer MEDICARE, SELFPAY ==
--- NOTE | 2023-08-04 11:17 | DI.MG.S_ITS ---
BILATERAL DIGITAL SCREENING MAMMOGRAM 3D/2D WITH CAD: 08/04/2023 CLINICAL: Routine screening. Comparison is made to exams dated: 12/18/2021 mammogram, 12/10/2020 mammogram, and 12/20/2019 mammogram - [facility]. Both breasts are heterogeneously dense, which may obscure small masses (category c / 51-75% glandular tissue). Current study was also evaluated with a Computer Aided Detection (CAD) system. No significant masses, calcifications, or other findings are seen in either breast. There has been no significant interval change. IMPRESSION: NEGATIVE There is no mammographic evidence of malignancy. A 1 year screening mammogram is recommended. Based on the Tyrer Cuzick model (a risk assessment model) the patient's lifetime risk is 4.4% and her 10 year risk is 0.0%. According to the ACR, ACS, and NCCN guidelines, an annual breast MRI exam along with mammogram is recommended if the patient's lifetime risk is 20% or greater. This exam was interpreted at Station ID: [id number]. NOTE: For mammograms, a report in lay terms will be sent to the patient. Approximately 15% of breast malignancies will not be visualized mammographically. In the management of a palpable breast mass, a negative mammogram must not discourage biopsy of a clinically suspicious lesion. Electronically Signed By: Garcia sandoval/clarisa:08/05/2023 09:35:51 letter sent: Normal Exam ACR BI-RADS Category 1: Negative 3341F
== END ==
LOC: MAMMO 11:16
PROVIDERS: PCP Internal Medicine; Referring Provider Internal Medicine; Visit Provider Internal Medicine
DX: Z12.31 Encounter for screening mammogram for malignant neoplasm of breast (principal); R92.333 Mammographic heterogeneous density, bilateral breasts
CPT/HCPCS: 77063; 77067

== ENCOUNTER → 2023-12-02 13:38 | Outpatient (CLI) | payer MEDICARE, SELFPAY ==
--- NOTE | 2023-12-02 13:39 | DI.CT.S_ITS ---
PROCEDURE: CT HEAD/BRAIN WO CON INDICATIONS: FELL AND HIT HEAD TECHNIQUE: Noncontrast 4.5 mm thick angled axial sections acquired from the foramen magnum to the vertex, with coronal and sagittal reformats. For radiation dose reduction, the following was used: automated exposure control, adjustment of mA and/or kV according to patient size. COMPARISON: None. FINDINGS: Image quality: Diagnostic. CSF spaces: Basal cisterns are patent. No extra-axial fluid collections. The ventricles are symmetric in size and shape. Brain: No intracranial bleeds or masses. There is cerebral volume loss for age, with resultant ventricular and sulcal prominence. There are periventricular and deep white matter chronic small vessel ischemic changes. There is intracranial internal carotid artery atherosclerosis. Skull and face: Calvarium and visualized facial bones appear intact, without suspicious lesions. Sinuses: Visualized sinuses and mastoids are clear. IMPRESSION: No acute intracranial hemorrhage is seen. No acute intracranial pathology. No displaced calvarial fracture can be seen. Dictated by: Jarvis Fox M.D. on 12/02/2023 at 14:10 Approved by: Jarvis Fox M.D. on 12/02/2023 at 14:11
== END ==
PROVIDERS: PCP Internal Medicine; Referring Provider Internal Medicine; Visit Provider Internal Medicine
DX: R42 Dizziness and giddiness (principal); S09.90XA Unspecified injury of head, initial encounter; W19.XXXA Unspecified fall, initial encounter
CPT/HCPCS: 70450

== ENCOUNTER → 2024-03-07 14:10 | Outpatient (CLI) | payer MEDICARE, SELFPAY ==
[2024-03-07 14:51] LABS: Influenza A - CEPHEID Flu A NEGATIVE (NEGATIVE); Influenza B - CEPHEID Flu B NEGATIVE (NEGATIVE); Respiratory Syncytial Virus Negative (Negative)
[2024-03-07 14:57] LABS: COVID-19 CEPHEID 4-PLEX PCR Negative (Negative)
== END ==
PROVIDERS: PCP Internal Medicine; Visit Provider Physician Assistant
DX: R05.9 Cough, unspecified (principal)
CPT/HCPCS: 0241U

== ENCOUNTER → 2024-03-07 14:38 | Outpatient (CLI) | payer MEDICARE, SELFPAY ==
--- NOTE | 2024-03-07 14:39 | DI.RAD.S_ITS ---
PROCEDURE: XR CHEST 2V INDICATIONS: acute cough TECHNIQUE: 2 views of the chest were acquired. COMPARISON: [facility], CR, XR CHEST 2V, 06/22/2023, 10:58. FINDINGS: Heart, mediastinum and pulmonary vascular: Heart is normal in size and configuration. Mediastinum is unremarkable. Pulmonary vascular is normal. Lungs: Scattered calcified granulomas noted. Lungs otherwise clear. Pleural spaces: Normal-no effusions or pneumothorax. Bones and soft tissues: Moderate degenerative disc disease seen throughout the upper midthoracic spine with mild chronic wedging of the thoracic vertebral bodies. IMPRESSION: No cardiopulmonary disease. Dictated by: Leeroy Crowley M.D. on 03/08/2024 at 9:46 Approved by: Leeroy Crowley M.D. on 03/08/2024 at 9:47
== END ==
PROVIDERS: PCP Internal Medicine; Referring Provider Physician Assistant; Visit Provider Physician Assistant
DX: R05.1 Acute cough (principal); J98.4 Other disorders of lung; M51.34 Other intervertebral disc degeneration, thoracic region
CPT/HCPCS: 0241U; 71046

== ENCOUNTER → 2024-05-06 14:25 | Outpatient (CLI) | payer MEDICARE, SELFPAY ==
--- NOTE | 2024-05-06 14:27 | DI.RAD.S_ITS ---
PROCEDURE: XR CHEST 2V INDICATIONS: COUGH TECHNIQUE: 2 views of the chest were acquired. COMPARISON: [facility], CR, XR CHEST 2V, 07/03/2021, 10:58. [facility], CR, XR CHEST 2V, 03/07/2024, 14:50. [facility], CR, XR CHEST 2V, 06/22/2023, 10:58. FINDINGS: Surgical changes and devices: None. Lungs and pleura: Lungs are clear except for a calcified granuloma lateral left upper lobe with associated left hilar and aortic arch region mediastinal calcified lymph nodes. No pleural effusions or pneumothorax. Mediastinum: Mediastinal contours are normal. Heart size is normal. Bones and chest wall: No suspicious bony abnormalities. Soft tissues appear unremarkable. IMPRESSION: No acute cardiopulmonary abnormality is seen. Old granulomatous disease on the left as discussed with calcified lung granuloma and calcified left hilar and mediastinal lymph nodes stable over time. Dictated by: Eric Dewey M.D. on 05/06/2024 at 15:46 Approved by: Eric Dewey M.D. on 05/06/2024 at 15:47
== END ==
PROVIDERS: PCP Internal Medicine; Referring Provider Family Medicine; Visit Provider Family Medicine
DX: J18.0 Bronchopneumonia, unspecified organism (principal); J98.4 Other disorders of lung
CPT/HCPCS: 71046

== ENCOUNTER 2024-05-28 09:17 | Emergency (ER) | payer MEDICARE, SELFPAY ==
[2024-05-28] VITALS (18 sets, daily range): BP systolic 102–137; BP diastolic 57–73; PULSE 75–149; RESP 15–29; TEMP 36.6; O2SAT 91–97; BMI 26.1
--- NOTE | 2024-05-28 09:21 | DI.RAD.S_ITS ---
PROCEDURE: XR CHEST 1V INDICATIONS: chest pain TECHNIQUE: One view of the chest was acquired. COMPARISON: [facility], CR, XR CHEST 2V, 05/06/2024, 14:23. FINDINGS: Surgical changes and devices: None. Lungs and pleura: Lungs are clear. No pleural effusions or pneumothorax. Mediastinum: Mediastinal contours appear normal. Heart size is normal. Calcified mediastinal node and calcified left upper lobe granuloma Bones and chest wall: No suspicious bony lesions. Overlying soft tissues appear unremarkable. IMPRESSION: No acute cardiopulmonary abnormality is seen. Approved by: Chino Romero M.D. on 05/28/2024 at 9:01
--- NOTE | 2024-05-28 09:37 | EKG_ITS ---
[place] [id number] [place] [id number] Test Date: 2024-05-28 Pat Name: An Montague Department: [facility] Room: Gender: Female Director Of Photography: ARLIN : 1945 Requested By: Order Number: [id number] Reading MD: Trevon Yost Measurements Intervals [place] Rate: 146 P: MO: QRS: -14 QRSD: 90 T: -2 QT: 294 QTc: 458 Interpretive Statements Critical Test Result: High HR Supraventricular tachycardia Minimal voltage criteria for LVH, may be normal variant ( R in aVL ) Inferior infarct , age undetermined Cannot rule out Anterior infarct , age undetermined Electronically Signed On 06-06-2024 18:49:22 PDT by Trevon Yost
--- NOTE | 2024-05-28 09:51 | DI.CT.S_ITS ---
PROCEDURE: CT ANGIO CHEST PE PROTOCOL INDICATIONS: chest pain/sob/tachy TECHNIQUE: After the administration of intravenous contrast, 2 mm thick sections acquired from the pulmonary apices to the posterior costophrenic angles. MIP reformats of the arterial vasculature were utilized. For radiation dose reduction, the following was used: automated exposure control, adjustment of mA and/or kV according to patient size. COMPARISON: [facility], CT, CT CHEST WO CON, 07/24/2022, 11:21. FINDINGS: Pulmonary arteries: Pulmonary arteries are normal in size, and demonstrate no intraluminal filling defects to suggest central pulmonary embolism. Lower Neck: No enlarged lymph nodes. Thyroid: Bulky substernal goiter remains stable from the prior Axillae: No enlarged lymph nodes. Chest Wall: Unremarkable. Bones: Unremarkable. Lungs and Pleura: No pneumothorax or pleural effusions. No consolidation or suspicious nodules. stable right middle lobe 5 mm nodule Heart: Heart size is normal. No pericardial effusion. Thoracic Vessels: No aortic aneurysm. Mediastinum and Vera: No enlarged lymph nodes. Esophagus: No wall thickening. No hiatal hernia. Upper Abdomen: Visualized upper abdomen solid organs and bowel loops appear normal. Hepatic cyst IMPRESSION: No pulmonary embolus. No acute cardiopulmonary process. Bulky substernal goiter and 5 mm right middle lobe nodule, both stable from 2022 Approved by: Chino Romero M.D. on 05/28/2024 at 10:56
--- NOTE | 2024-05-28 09:52 | ED.DIZZY ---
HPI - Dizziness General Chief Complaint: Dizziness Stated Complaint: Heart rate is fast, Dizzy , Low blood pressure Time Seen by Provider: 05/28/24 09:23 History of Present Illness HPI Narrative: 79-year-old female history of overactive bladder GERD presents with dizziness and heart palpitations that started yesterday patient reports she has been getting over a bronchitis in the past 3 months been on 2 rounds of antibiotics and was coughing most recently. Other than what is stated 14 point review of systems day Related Data Home Medications Medication Instructions Recorded Confirmed cholecalciferol (vitamin D3) 50 2,000 iu PO Q DAY ##0 10/29/11 03/03/23 mcg (2,000 unit) capsule (Vitamin D3) multivitamin See Rx Instructions PO DAILY 02/10/18 03/03/23 vit 2 tab PO BID 02/10/18 03/03/23 [id number] 500 mg-50 mg-25 mg-40 mg tablet (Bioflex) omega-3 fatty acids 1,000 mg 1,000 mg PO DAILY 05/31/20 03/03/23 capsule (Fish Oil Concentrate) psyllium husk 0.4 gram capsule 0.4 g PO DAILY 05/31/20 03/03/23 (Daily Fiber) Previous Rx's Medication Instructions Recorded sodium sul 1.479 gram-potas ch See Rx Instructions PO PER PKG DIR 07/04/21 0.188 gram-magnes sul 0.225 gram #24 tabs tablet (Sutab) omeprazole 20 mg capsule,delayed 20 mg PO DAILY #90 caps 08/15/21 release oxybutynin chloride 5 mg tablet 5 mg PO BID #30 tabs 10/18/21 albuterol sulfate 90 mcg/actuation 2 puff inhalation Q6H PRN 03/07/24 aerosol inhaler shortness of breath or wheezing #6.7 grams Allergies Allergy/AdvReac Type Severity Reaction Status Date / Time No Known Drug Allergies Allergy Verified 05/28/24 09:25 Review of Systems Review of Systems ROS Unobtainable: All systems reviewed & are unremarkable except as noted in HPI and below Patient History Medical History Abdominal bloating Ankle pain Back pain Cataract (2014) Chicken pox (~1950) Elevated parathyroid hormone Fatigue (02/2019) Foot pain Hoarseness or changing voice Intertrigo labialis Left knee pain Mild to moderate hearing loss Mumps (~1950) Skin cancer (2013) Vertigo (~1989) Vitamin D deficiency Surgical History Anesthesia History of bladder suspension procedure (2012) History of cataract removal with insertion of prosthetic lens (2014) Status post surgical removal of malignant neoplasm of skin (2014) Family History Sister Age: 84 Overweight Heart disease Brother Heart disease Father Heart disease Mother No problems noted. Sister Overweight Heart disease Social History marital status: household members: spouse pets and animals: Yes education level: other occupational status: other [employer] other: walking,weight lifting,treadmill,camping,boating seatbelt use: always helmet use: Yes water heater temp set < 120 deg: Yes working smoke detector in home: Yes fire extinguisher in home: Yes carbon monox detector in home: Yes firearms in home: Yes Smoking Status: Former smoker second hand exposure: No alcohol intake: current substance use type: does not use well-balanced diet: daily or most days daily servings fruits/ve-4 caffeine: Yes eating out: rarely or never Type(s) of exercise: walking and weight lifting frequency: 3-4 times per week Smoking Status: Former smoker Exam Narrative Exam Narrative: GENERAL: [79] year old patient appears stated age. Well-developed patient, in mild distress. HEAD: Atraumatic. Normocephalic. EYES: Pupils equal round and reactive. Extraocular motions intact. No scleral icterus. No injection or drainage. ENT: Nose without bleeding, purulent drainage. Throat without erythema, tonsillar hypertrophy or exudate. Airway patent. NECK: Trachea midline. Non tender CARDIOVASCULAR: Tachycardic, regular rate and rhythm without murmurs, gallops, or rubs. RESPIRATORY: Clear to auscultation. Breath sounds equal bilaterally. No wheezes, rales, or rhonchi. GASTROINTESTINAL: Abdomen soft, non-tender, nondistended. EXTREMITIES: No edema or joint tenderness. BACK: Nontender without deformity or crepitance. No flank tenderness. NEURO: AOx3. SKIN: No rash or erythema of visible areas Initial Vital Signs Initial Vital Signs: Vital Signs Temperature 97.8 F 05/28/24 09:25 Pulse Rate 149 H 05/28/24 09:25 Respiratory Rate 18 05/28/24 09:25 Blood Pressure 102/59 L 05/28/24 09:25 Pulse Oximetry 95 05/28/24 09:25 Oxygen Delivery Method Room Air 05/28/24 09:25 Course Orders Ordered: ED Orders 05/28/24 09:21 XR chest 1V Stat EKG-12 Lead Stat 05/28/24 09:39 Complete Blood Count AUTO DIFF Stat Comprehensive Metabolic Panel Stat Free T4, Direct Thyroxine Stat Lipase Stat Magnesium Stat NT-proBNP (BNP-Adult 18+) Stat PTT Partial Thromboplastin Darin Stat Prothrombin Time INR Stat TSH [Thyroid Stimulating Hormone] Stat Troponin & CK Cardiac Panel Stat 05/28/24 09:51 CT angio chest PE protocol Stat 05/28/24 10:12 Covid-19 + FLU A/B + RSV - PCR Stat Discontinued Medications Aspirin (Aspirin 81 Mg Chew Tab) 324 mg PO NOW ONE Stop: 05/28/24 09:22 Vital Signs Vital signs: Vital Signs - 8 hr 05/28/24 09:25 05/28/24 09:26 05/28/24 09:26 Temperature 97.8 F Pulse Rate 149 H 139 H Respiratory Rate 18 Blood Pressure 102/59 L 102/59 L Pulse Oximetry 95 96 Oxygen Delivery Method Room Air 05/28/24 09:30 05/28/24 09:32 05/28/24 09:32 Temperature Pulse Rate 148 H 102 H Respiratory Rate 15 29 H Blood Pressure 137/66 Pulse Oximetry 96 94 Oxygen Delivery Method 05/28/24 09:45 05/28/24 09:45 05/28/24 09:50 Temperature Pulse Rate 95 H 96 H Respiratory Rate 28 H 21 Blood Pressure 128/73 Pulse Oximetry 94 94 Oxygen Delivery Method 05/28/24 09:50 05/28/24 09:55 05/28/24 09:55 Temperature Pulse Rate 94 H Respiratory Rate 23 Blood Pressure 123/57 L 115/58 L Pulse Oximetry 92 Oxygen Delivery Method 05/28/24 10:00 05/28/24 10:00 05/28/24 10:05 Temperature Pulse Rate 91 H 91 H Respiratory Rate 22 21 Blood Pressure 114/59 L Pulse Oximetry 91 91 Oxygen Delivery Method 05/28/24 10:05 05/28/24 10:10 05/28/24 10:10 Temperature Pulse Rate 90 Respiratory Rate 19 Blood Pressure 106/58 L 105/57 L Pulse Oximetry 91 Oxygen Delivery Method 05/28/24 10:15 05/28/24 10:15 05/28/24 10:20 Temperature Pulse Rate 87 87 Respiratory Rate 21 21 Blood Pressure 107/58 L Pulse Oximetry 92 91 Oxygen Delivery Method 05/28/24 10:20 05/28/24 10:33 05/28/24 11:00 Temperature Pulse Rate 85 81 Respiratory Rate 17 Blood Pressure 114/59 L Pulse Oximetry 92 95 Oxygen Delivery Method 05/28/24 11:30 05/28/24 12:00 Temperature Pulse Rate 76 75 Respiratory Rate 21 16 Blood Pressure Pulse Oximetry 92 93 Oxygen Delivery Method MDM - Dizziness Lab Data 05/28/24 09:39 05/28/24 09:39 Labs: Lab Results 05/28/24 05/28/24 Range/Units 09:39 10:12 WBC 6.3 (4.5-11.0) X10^3/uL RBC 4.55 (4.0-5.2) X10^6/uL Hgb 14.0 (12.0-16.0) g/dL Hct 42.1 (36-46) % MCV 92.5 (80-100) fL MCH 30.7 (26-34) PG MCHC 33.1 (30-36) % RDW 13.9 (11.6-14.8) % Plt Count 237 (150-400) X10^3/uL Neut % (Auto) 69.2 (50-75) % Lymph % (Auto) 18.8 L (25-40) % [place] % (Auto) 7.1 (3-14) % Eos % (Auto) 4.6 H (2-4) % Baso % (Auto) 0.3 (0-2) % Neut # (Auto) 4400 (4094-4853) /uL Lymph # (Auto) 1200 (6678-3963) /uL [place] # (Auto) 400 (0-900) /uL Eos # (Auto) 300 (0-450) /uL Baso # (Auto) 0 (0-100) /uL PT 11.1 (9.4-12.5) SECONDS INR 1.0 (0.9-1.3) APTT 33 (25.1-36.5) SECONDS Sodium 138 (137-145) mmol/L Potassium 4.6 (3.4-5.1) mmol/L Chloride 103 (98-107) mmol/L Carbon Dioxide 25 (22-32) mmol/L BUN 15 (7-17) mg/dL Creatinine 0.89 (0.52-1.04) mg/dL Estimated GFR > 60 (>60) mL/min BUN/Creatinine Ratio 16.9 (6-22) Glucose 87 (80-110) mg/dL Calcium 10.1 (8.4-10.2) mg/dL Magnesium 1.9 (1.6-2.3) mg/dL Total Bilirubin 0.7 (0.2-1.3) mg/dL AST 37 H (14-36) IU/L ALT 20 (<35) IU/L Alkaline Phosphatase 44 (38-126) U/L Total Creatine Kinase 46 (30-135) U/L Troponin I < 0.012 (0.01-0.034) ng/mL NT-Pro-B Natriuret Pep 318 (<450) pg/mL Total Protein 8.0 (6.3-8.2) g/dL Albumin 4.8 (3.5-5.0) g/dL Globulin 3.2 (1.7-4.1) g/dL Albumin/Globulin Ratio 1.5 (1.0-2.8) Lipase 97 (23-300) U/L TSH 0.211 L (0.47-4.68) uIU/mL Free T4 1.07 (0.78-2.19) ng/dL SARS-CoV-2 (PCR) Negative (Negative) Influenza A (RT-PCR) Flu a negative (NEGATIVE) Influenza B (RT-PCR) Flu b negative (NEGATIVE) RSV (PCR) Negative (Negative) Imaging Data CT scan - chest: Radiologist's Impression: FINDINGS: Pulmonary arteries: Pulmonary arteries are normal in size, and demonstrate no intraluminal filling defects to suggest central pulmonary embolism. Lower Neck: No enlarged lymph nodes. Thyroid: Bulky substernal goiter remains stable from the prior Axillae: No enlarged lymph nodes. Chest Wall: Unremarkable. Bones: Unremarkable. Lungs and Pleura: No pneumothorax or pleural effusions. No consolidation or suspicious nodules. stable right middle lobe 5 mm nodule Heart: Heart size is normal. No pericardial effusion. Thoracic Vessels: No aortic aneurysm. Mediastinum and Vera: No enlarged lymph nodes. Esophagus: No wall thickening. No hiatal hernia. Upper Abdomen: Visualized upper abdomen solid organs and bowel loops appear normal. Hepatic cyst IMPRESSION: No pulmonary embolus. No acute cardiopulmonary process. Bulky substernal goiter and 5 mm right middle lobe nodule, both stable from 2022 Approved by: Chino Romero M.D. on 05/28/2024 at 10:56 ECG Data Attestation: I personally reviewed and interpreted this ECG as follows: Interpretation: HR 146 QRS [address]-t wave changes No previous ekg to compare against MDM Narrative Medical decision making narrative: All lab work chest x-ray EKG CTA all reviewed nurse triage note reviewed previous imaging and lab work also reviewed medication list reviewed and vital signs reviewed. Initially heart rate was 148 on arrival with no medications given heart rate has now come down to 70s sinus rhythm. Differential diagnosis includes PE SVT NSTEMI STEMI thyroid disease dehydration anemia. Follow up with PCP on Thursday at your next scheduled appointment return with new or worsening symptoms Discharge Plan Departure Patient Disposition: Home Clinical Impression: Tachycardia, Goiter, Abnormal thyroid stimulating hormone (TSH) level Instructions: DI for Tachycardia Activity Restrictions/Additional Instructions: Return with new or worsening symptoms. Follow up with PCP appointment on Thursday Prescriptions: No Action vit [id number] [Bioflex] 533-48-10-40 mg tablet 2 tab PO BID multivitamin tablet See Rx Instructions PO DAILY Patient Comments: 1 gummy PO QDAY Rx Instructions: 1 gummy PO QDAY albuterol sulfate 90 mcg/actuation HFA aerosol inhaler 2 puff inhalation Q6H PRN (Reason: shortness of breath or wheezing) Qty: 6.7 0RF cholecalciferol (vitamin D3) [Vitamin D3] 2,000 UNIT capsule 2,000 iu PO Q DAY Qty: 0 Sutab 1.479-0.188- 0.225 gram tablet See Rx Instructions PO PER PKG DIR Qty: 24 0RF Rx Instructions: Follow instructions provided by [facility] omeprazole 20 mg capsule,delayed release(DR/EC) 20 mg PO DAILY Qty: 90 1RF oxybutynin chloride 5 mg tablet 5 mg PO BID Qty: 30 0RF psyllium husk [Daily Fiber] 0.4 gram capsule 0.4 g PO DAILY omega-3 fatty acids [Fish Oil Concentrate] 1,000 mg capsule 1,000 mg PO DAILY Referrals: Marisa Osullivan ARNP [Primary Care Provider] - Stand Alone Forms: Patient Portal/API/Survey
[2024-05-28 09:55] LABS: Add Manual Diff / Slide Review NO; Basophils Absolute Auto 0 /uL (0-100); Basophils Percent Auto 0.3 % (0-2); Eosinophils Absolute Auto 300 /uL (0-450); Eosinophils Percent Auto 4.6 % (2-4); Hematocrit 42.1 % (36-46); Lymphocytes Absolute Auto 1200 /uL (1100-4500); Lymphocytes Percent Auto 18.8 % (25-40); Mean Corpuscular HGB Conc 33.1 % (30-36); Mean Corpuscular Hemoglobin 30.7 PG (26-34); Mean Corpuscular Volume 92.5 fL (80-100); Monocytes Absolute Auto 400 /uL (0-900); Monocytes Percent Auto 7.1 % (3-14); Neutrophils Absolute Auto 4400 /uL (1500-7000); Neutrophils Percent Auto 69.2 % (50-75); Platelet Count 237 X10^3/uL (150-400); Red Blood Cell Count 4.55 X10^6/uL (4.0-5.2); Red Cell Distribution Width 13.9 % (11.6-14.8); White Blood Cell Count 6.3 X10^3/uL (4.5-11.0)
[2024-05-28 10:03] LABS: Prothrombin Time 11.1 SECONDS (9.4-12.5)
[2024-05-28 10:06] LABS: PTT Partial Thromboplastin Tim 33 SECONDS (25.1-36.5)
[2024-05-28 10:10] LABS: Alanine Aminotransferase 20 IU/L (<35); Albumin 4.8 g/dL (3.5-5.0); Albumin Globulin Ratio 1.5 (1.0-2.8); Alkaline Phosphatase 44 U/L (38-126); Aspartate Aminotransferase 37 IU/L (14-36); BUN Creatinine Ratio 16.9 (6-22); Bilirubin Total 0.7 mg/dL (0.2-1.3); Blood Urea Nitrogen 15 mg/dL (7-17); Calcium 10.1 mg/dL (8.4-10.2); Carbon Dioxide 25 mmol/L (22-32); Chloride 103 mmol/L (98-107); Creatine Kinase 46 U/L (30-135); Estimated Glomerular Filt Rate > 60 mL/min (>60); Globulin 3.2 g/dL (1.7-4.1); Glucose 87 mg/dL (80-110); Lipase 97 U/L (23-300); Magnesium 1.9 mg/dL (1.6-2.3); Potassium 4.6 mmol/L (3.4-5.1); Sodium 138 mmol/L (137-145)
[2024-05-28 10:16] LABS: HEMOLYSIS 73 (0-50)
[2024-05-28 10:20] LABS: NT-proBNP (BNP-Adult 18+) 318 pg/mL (<450)
--- NOTE | 2024-05-28 10:21 | PC.NURSE ---
Pt reports intermittent episodes of dizziness. States her bp at home was 50s/30s. Pt appears pale; states she looks a little more paler than usual. Pt denies CP
[2024-05-28 10:40] LABS: Thyroid Stimulating Hormone 0.211 uIU/mL (0.47-4.68)
[2024-05-28 11:10] LABS: Influenza A - CEPHEID Flu A NEGATIVE (NEGATIVE); Influenza B - CEPHEID Flu B NEGATIVE (NEGATIVE); Respiratory Syncytial Virus Negative (Negative)
[2024-05-28 11:12] LABS: COVID-19 CEPHEID 4-PLEX PCR Negative (Negative)
[2024-05-28 11:13] LABS: Troponin I < 0.012 ng/mL (0.01-0.034)
[2024-05-28 12:28] LABS: Free T4, Direct Thyroxine 1.07 ng/dL (0.78-2.19)
== END 2024-05-28 12:59 | disposition home or self-care (01) ==
PROVIDERS: Emergency Provider Family Medicine; PCP Internal Medicine
DX: R00.0 Tachycardia, unspecified (principal); R00.2 Palpitations; R79.89 Other specified abnormal findings of blood chemistry; R05.9 Cough, unspecified
CPT/HCPCS: 0241U; 71045; 71275; 80053; 82550; 83690; 83735; 83880; 84439; 84443; 84484; 85025; 85610; 85730; 93005; 99283; 99284; Q9967

== ENCOUNTER → 2024-09-12 15:13 | Outpatient (CLI) | payer MEDICARE, SELFPAY ==
--- NOTE | 2024-09-12 15:14 | DI.US.S_ITS ---
PROCEDURE: US THYROID INDICATIONS: Nontoxic goiter, unspecified TECHNIQUE: Real-time scanning was performed of the thyroid gland, with image documentation. COMPARISON: , CT, CT ANGIO CHEST PE PROTOCOL, 05/28/2024, 10:24. , US, US THYROID, 08/16/2021, 12:08. FINDINGS: Thyroid: Right lobe measures 6.1 x 4.7 x 3.6 cm. Left lobe measures 4.2 x 2.4 x 2.4 cm. Isthmus is 1 cm thick. Echotexture is heterogeneous. Nodule number: 1 Location: Right superior Size: 3.6 x 3.1 x 2.9 cm. Composition: Solid Echogenicity: Isoechoic Shape: wider than tall. Margins: Smooth Echogenic foci: None Total points: 3 ACR TI-RADS category: TR 3 Nodule number: 2 Location: Right inferior Size: 2.8 x 2.6 x 1.9 cm. Composition: Solid Echogenicity: Isoechoic Shape: wider than tall. Margins: Smooth Echogenic foci: None Total points: 3 ACR TI-RADS category: TR 3 Nodule number: 3 Location: Isthmus Size: 1.3 x 1.3 x 1 cm. Composition: Solid Echogenicity: Hypoechoic Shape: wider than tall. Margins: Smooth Echogenic foci: None Total points: 4 ACR TI-RADS category: TR 4 Nodule number: 4 Location: Left mid Size: 3.1 x 2.8 x 2.2 cm. Composition: Solid Echogenicity: Isoechoic Shape: wider than tall. Margins: Smooth Echogenic foci: None Total points: 3 ACR TI-RADS category: TR 3 Nodule number: 4 Location: Left mid Size: 1.6 x 1.2 x 1.1 cm. Composition: Solid and cystic Echogenicity: Hypoechoic Shape: wider than tall. Margins: Ill-defined Echogenic foci: Macrocalcification Total points: 5 ACR TI-RADS category: TR 4 IMPRESSION: Multinodular goiter. Recommend FNA of the 2 most suspicious thyroid nodules. 1. Left mid thyroid nodule measuring 1.6 cm. TR 4. -Recommend FNA. 2. Right superior thyroid nodule measuring 3.6 cm. TR 3. -Recommend FNA. 3. Isthmus thyroid nodule measuring 1.3 cm. TR 4. -Recommend follow-up thyroid ultrasound in 1 year. ACR TI-RADS definitions and recommendations: TI-RADS 1 (benign): 0 points. FNA not needed. TI-RADS 2 (not suspicious): 2 points. FNA not needed. TI-RADS 3: 3 points. * FNA if 2.5 cm or larger, follow up if 1.5 cm or larger (at 1, 3, and 5 years). TI-RADS 4: 4-6 points. * FNA if 1.5 cm or larger, follow up if 1 cm or larger (at 1, 2, 3, and 5 years). TI-RADS 5: 7 points or more. * FNA if 1 cm or larger, follow up if 0.5 cm or larger (every year for 5 years). Dictated by: Neeraj Loza M.D. on 09/12/2024 at 22:17 Approved by: Neeraj Loza M.D. on 09/12/2024 at 22:29
== END ==
LOC: US 15:13
PROVIDERS: PCP Internal Medicine; Referring Provider Family Medicine; Visit Provider Family Medicine
DX: E04.2 Nontoxic multinodular goiter (principal); E05.90 Thyrotoxicosis, unspecified without thyrotoxic crisis or storm
CPT/HCPCS: 76536

== ENCOUNTER → 2024-11-28 10:17 | Outpatient (CLI) | payer MEDICARE, SELFPAY ==
[2024-11-28 11:01] LABS: Alanine Aminotransferase 12 IU/L (<35); Albumin 4.4 g/dL (3.5-5.0); Albumin Globulin Ratio 1.6 (1.0-2.8); Alkaline Phosphatase 46 U/L (38-126); Globulin 2.8 g/dL (1.7-4.1); HEMOLYSIS < 15 (0-50); Total Protein 7.2 g/dL (6.3-8.2)
[2024-11-28 11:13] LABS: Free T3, Triiodothyronine Free 4.21 pg/mL (2.77-5.27); Free T4, Direct Thyroxine 0.81 ng/dL (0.78-2.19)
[2024-11-28 11:27] LABS: Thyroid Stimulating Hormone 3.59 uIU/mL (0.47-4.68)
== END ==
PROVIDERS: PCP Family Medicine; Referring Provider Family Medicine; Visit Provider Student in an Organized Health Care Education/Training Program
DX: E05.90 Thyrotoxicosis, unspecified without thyrotoxic crisis or storm (principal)
CPT/HCPCS: 36415; 80076; 84439; 84443; 84481

== ENCOUNTER → 2025-02-13 08:40 | Outpatient (CLI) | payer MEDICARE, SELFPAY ==
--- NOTE | 2025-02-13 08:43 | DI.NM.S_ITS ---
PROCEDURE: NM UPTAKE AND SCAN RADIOPHARMACEUTICAL: 397 ???Ci I-123 sodium iodide by mouth. INDICATIONS: Hyperthyroidism TECHNIQUE: I-123 sodium iodide was administered orally. Anterior neck images were obtained, and iodine uptake by the thyroid gland calculated using child and adolescent psychiatrist's software. COMPARISON: None. FINDINGS: Morphology: The thyroid gland has normal morphology and demonstrates more prominent uptake within the left mid/upper gland. Uptake: 6 hour thyroid uptake is 27% ; normal ranges are from 6-18%. 24 hour thyroid uptake is 52.5% ; normal ranges are from 10-30%. IMPRESSION: 1. There appears to be more prominent uptake within the left mid/upper gland. However, the left lobe does not demonstrate a significant increased uptake percentage when compared to the right. 2. Increased thyroid uptake at both 6 and 24 hours, as above. Dictated by: Stephen Martínez M.D. on 02/14/2025 at 14:58 Approved by: Stephen Martínez M.D. on 02/14/2025 at 15:02
== END ==
LOC: NUCM 08:41
PROVIDERS: PCP Family Medicine; Referring Provider Student in an Organized Health Care Education/Training Program; Visit Provider Student in an Organized Health Care Education/Training Program
DX: E05.90 Thyrotoxicosis, unspecified without thyrotoxic crisis or storm (principal)
CPT/HCPCS: 78014; A9516

== ENCOUNTER → 2025-02-14 08:55 | Outpatient (CLI) | payer MEDICARE, SELFPAY ==
[2025-02-14 10:31] LABS: TSH w/ Reflex to FT4 1.83 uIU/mL (0.47-4.68)
== END ==
PROVIDERS: PCP Family Medicine; Referring Provider Student in an Organized Health Care Education/Training Program; Visit Provider Student in an Organized Health Care Education/Training Program
DX: E05.90 Thyrotoxicosis, unspecified without thyrotoxic crisis or storm (principal)
CPT/HCPCS: 36415; 84443